=== PATIENT | female | born 1995 | race Caucasian/White ===

== ENCOUNTER 2018-06-01 16:31 | Outpatient (CLI) | payer SELFPAY | END 2018-06-01 16:51 | PROVIDERS: PCP Pediatrics; Visit Provider Registered Nurse | DX: R00.2 Palpitations (principal) | CPT/HCPCS: 93005; 93010 ==

== ENCOUNTER 2019-04-23 14:01 | Outpatient (REF) | payer MEDICAID, SELFPAY ==
--- NOTE | 2019-04-23 13:40 | PAPFT_PTH ---
PATIENT: Aristeo Perla LOC: [facility] U#:[id number] AGE/SX: 23/F ROOM: RE04/23/[address]: HERLINDA Lebron : 1995 BED: DIS: 04/23/2019 SPEC #: [id number] RECD: 04/23/19 18:28 STATUS: LETICIA REQ #: [id number] TAZ: 04/23/19 13:[address]: Constanza Saldivar DEPT: [facility] Cytology RECD BY: Nimco Toney ENTERED: 04/23/19 18:28 SP TYPE: PAPFT JASPREET DR: Omaira Menjivar, PhD [employer] OPERATOR Tissues: 1 - CX/ENDOCX FOR PAP SMEARS Procedures: PAP THIN PREP/[facility] Screening Comments: [id number]
[2019-04-26 15:23] LABS: Chlamydia Result Negative (Negative); GC Result Negative (Negative)
== END 2019-04-23 14:21 ==
LOC: LBN 14:01
PROVIDERS: PCP Nurse Practitioner; Visit Provider Nurse Practitioner Family
DX: Z11.3 Encounter for screening for infections with a predominantly sexual mode of transmission (principal); Z12.4 Encounter for screening for malignant neoplasm of cervix
CPT/HCPCS: 87491; 87591; 88142

== ENCOUNTER 2020-05-19 03:27 | Outpatient (CLI) | payer MEDICAID, SELFPAY ==
[2020-05-19 20:48] LABS: COVID-19 RT-PCR UVMMC Result Negative (Negative)
== END 2020-05-19 03:47 ==
PROVIDERS: PCP Nurse Practitioner; Visit Provider Nurse Practitioner
DX: Z20.822 Contact with and (suspected) exposure to COVID-19 (principal)
CPT/HCPCS: U0003

== ENCOUNTER 2020-07-05 04:06 | Outpatient (CLI) | payer MEDICAID, SELFPAY ==
[2020-07-05 08:44] LABS: Hemoglobin A1C 5.2 % (<5.7)
[2020-07-05 09:28] LABS: Calculated LDL 98 mg/dL (<100); Cholesterol 178 mg/dL (<200); HDL Cholesterol 70 mg/dL (40-60); Triglyceride 52 mg/dL (<150)
== END 2020-07-05 04:07 | disposition home or self-care (01) ==
LOC: LBO 04:06
PROVIDERS: PCP Nurse Practitioner; Visit Provider Nurse Practitioner
DX: Z13.1 Encounter for screening for diabetes mellitus (principal); Z13.6 Encounter for screening for cardiovascular disorders
CPT/HCPCS: 36415; 80061; 83036

== ENCOUNTER 2020-10-17 18:54 | Outpatient (REF) | payer MEDICAID, SELFPAY ==
[2020-10-18 14:11] LABS: Chlamydia Result Negative (Negative); GC Result Negative (Negative)
== END 2020-10-17 18:55 | disposition home or self-care (01) ==
LOC: LBN 18:54
PROVIDERS: PCP Nurse Practitioner; Visit Provider Nurse Practitioner Women's Health
DX: Z11.3 Encounter for screening for infections with a predominantly sexual mode of transmission (principal)
CPT/HCPCS: 87491; 87591

== ENCOUNTER 2020-11-30 16:15 | Outpatient (REF) | payer MEDICAID, SELFPAY ==
[2020-12-04 15:23] LABS: Chlamydia Result Negative (Negative); GC Result Negative (Negative)
== END 2020-11-30 16:16 | disposition home or self-care (01) ==
LOC: LBN 16:15
PROVIDERS: PCP Nurse Practitioner; Visit Provider Obstetrics & Gynecology
DX: Z20.2 Contact with and (suspected) exposure to infections with a predominantly sexual mode of transmission (principal); Z11.3 Encounter for screening for infections with a predominantly sexual mode of transmission
CPT/HCPCS: 87491; 87591; 87480; 87510; 87660

== ENCOUNTER 2021-02-01 10:29 | Outpatient (REF) | payer MEDICAID, SELFPAY ==
[2021-02-02 12:06] LABS: COVID-19 RT-PCR UVMMC Result Negative (Negative)
== END 2021-02-01 10:30 | disposition home or self-care (01) ==
LOC: LBN 10:29
PROVIDERS: PCP Nurse Practitioner; Visit Provider Nurse Practitioner Family
DX: Z20.822 Contact with and (suspected) exposure to COVID-19; J02.9 Acute pharyngitis, unspecified
CPT/HCPCS: U0003; 87070

== ENCOUNTER 2021-02-07 15:40 | Outpatient (REF) | payer MEDICAID, SELFPAY | END 2021-02-07 15:41 | disposition home or self-care (01) | LOC: LBN 15:40 | PROVIDERS: PCP Nurse Practitioner; Visit Provider Obstetrics & Gynecology Gynecology | DX: N89.8 Other specified noninflammatory disorders of vagina (principal) | CPT/HCPCS: 87480; 87510; 87660 ==

== ENCOUNTER 2021-04-09 13:57 | Outpatient (REF) | payer MEDICAID, SELFPAY ==
[2021-04-11 13:44] LABS: Chlamydia Result Negative (Negative); GC Result Negative (Negative)
== END 2021-04-09 13:58 | disposition home or self-care (01) ==
LOC: LBN 13:57
PROVIDERS: PCP Nurse Practitioner; Visit Provider Nurse Practitioner Women's Health
DX: N89.8 Other specified noninflammatory disorders of vagina (principal); Z11.3 Encounter for screening for infections with a predominantly sexual mode of transmission
CPT/HCPCS: 87491; 87591; 87480; 87510; 87660

== ENCOUNTER 2021-07-16 01:54 | Outpatient (CLI) | payer MEDICAID, SELFPAY ==
[2021-07-16 15:12] LABS: TSH (W/Ref FT4) 0.65 uIU/mL (0.36-3.74)
== END 2021-07-16 01:55 | disposition home or self-care (01) ==
LOC: LBO 01:55
PROVIDERS: PCP Nurse Practitioner; Visit Provider Nurse Practitioner
DX: R53.83 Other fatigue (principal)
CPT/HCPCS: 36415; 84443

== ENCOUNTER 2021-11-16 16:48 | Outpatient (REF) | payer MEDICAID, SELFPAY ==
[2021-11-19 10:47] LABS: HBs Antibody, Quant <3.1 mIU/mL (See Note); Hepatitis B Surface Ab Negative (See Note)
[2021-11-19 18:08] LABS: Measles IgG Antibody Negative (See Note); Mumps Antibody IgG Negative (See Note); Rubella IgG Ab (UVM) Positive (See Note); Varicella IgG Antibody Positive (See Note)
== END 2021-11-16 16:49 | disposition home or self-care (01) ==
LOC: LBN 16:48
PROVIDERS: PCP Nurse Practitioner; Visit Provider Physician Assistant Medical
DX: Z11.59 Encounter for screening for other viral diseases (principal); Z01.84 Encounter for antibody response examination
CPT/HCPCS: 86706; 86787; 86735; 86762; 86765

== ENCOUNTER 2022-05-31 12:09 | Outpatient (REF) | payer MEDICAID, SELFPAY ==
--- NOTE | 2022-05-31 08:45 | PAPFT_PTH ---
PATIENT: Aristeo Perla LOC: [facility] U#:[id number] AGE/SX: 27/F ROOM: RE05/31/[address]: Aimee Siegel MD : 1995 BED: DIS: 05/31/2022 SPEC #: [id number] RECD: 05/31/22 12:44 STATUS: LETICIA REJoss #: [id number] TAZ: 05/31/22 08:[address]: Aimee Siegel DEPT: [facility] Cytology RECD BY: Nimco Toney ENTERED: 05/31/22 12:45 SP TYPE: PAPFT OTHR DR: Mary Levin, TATIANNA Tissues: 1 - CX/ENDOCX FOR PAP SMEARS Procedures: PAP THIN PREP/[facility] Screening HPV DNA PROBE Comments: [id number] (CHLAMYDIA/GC)
[2022-06-03 14:15] LABS: Chlamydia Result Negative (Negative); GC Result Negative (Negative)
== END 2022-05-31 12:10 | disposition home or self-care (01) ==
LOC: LBN 12:09
PROVIDERS: PCP Nurse Practitioner Family; Visit Provider Obstetrics & Gynecology
DX: Z12.4 Encounter for screening for malignant neoplasm of cervix (principal); Z11.3 Encounter for screening for infections with a predominantly sexual mode of transmission; N89.8 Other specified noninflammatory disorders of vagina; R87.610 Atypical squamous cells of undetermined significance on cytologic smear of cervix (ASC-US); Z11.51 Encounter for screening for human papillomavirus (HPV)
CPT/HCPCS: 87491; 87591; 88142; 87480; 87510; 87624; 87660

== ENCOUNTER 2022-07-17 02:59 | Outpatient (CLI) | payer MEDICAID, SELFPAY ==
[2022-07-17 08:59] LABS: Abs Immature Grans 0.03 10^3/uL (0.0-0.06); Absolute Basophil Count 0.02 10^3/uL (0.0-0.2); Absolute Eosinophil Count 0.09 10^3/uL (0.0-0.7); Absolute Lymphocyte Count 2.92 10^3/uL (1.2-3.4); Absolute Monocyte Count 0.73 10^3/uL (0.1-0.8); Absolute Neutrophil Count 3.87 10^3/uL (1.2-6.7); Basophils % 0.3; Eosinophils % 1.2; HCT 41.5 % (36.0-46.0); Immature Grans % 0.4; Lymphocytes % 38.1; MCHC 33.7 % (32.0-36.0); MCV 95 fL (80-95); MPV 9.2 fL (8.0-11.0); Monocytes % 9.5; Neutrophils % 50.5; Platelet Count 239 10^3/uL (130-400); RBC 4.38 10^6/uL (3.93-5.22); RDW 12.1 % (11.7-14.6); RDW-SD 42.2 fL; WBC 7.66 10^3/uL (4.4-10.8)
[2022-07-17 09:16] LABS: ALT 27 U/L (14-59); AST 14 U/L (15-37); Albumin 4.1 g/dL (3.4-5.0); Alkaline Phosphatase 55 U/L (46-116); Anion Gap 9.7 mmol/L (3-11); BUN 9 mg/dL (7-18); Bilirubin, Total 1.4 mg/dL (0.2-1.0); CO2 26.3 mmol/L (21.0-32.0); CREATININE 0.8 mg/dL (0.55-1.02); Calcium 9.1 mg/dL (8.5-10.1); Chloride 102 mmol/L (98-107); Glucose 111 mg/dL (74-106); Potassium 3.3 mmol/L (3.5-5.1); Sodium 138 mmol/L (136-145); TSH (W/Ref FT4) 1.21 uIU/mL (0.36-3.74); Total Protein 7.7 g/dL (6.4-8.2)
[2022-07-18 09:25] LABS: HBs Antibody, Quant >1000.0 mIU/mL (See Note); Hepatitis B Surface Ab Positive (See Note)
== END 2022-07-17 03:00 | disposition home or self-care (01) ==
LOC: LBO 02:59
PROVIDERS: PCP Nurse Practitioner Family; Visit Provider Nurse Practitioner Family
DX: F41.8 Other specified anxiety disorders (principal); R53.83 Other fatigue; Z11.59 Encounter for screening for other viral diseases
CPT/HCPCS: 36415; 80053; 86706; 84443; 85025

== ENCOUNTER 2023-06-30 15:38 | Outpatient (REF) | payer MEDICAID, SELFPAY ==
--- NOTE | 2023-06-30 15:00 | PAPFT_PTH ---
PATIENT: Aristeo Perla LOC: [facility] U#:[id number] AGE/SX: 28/F ROOM: RE06/30/[address]: Supriya Lyons : 1995 BED: DIS: 06/30/2023 SPEC #: [id number] RECD: 06/30/23 17:30 STATUS: LETICIA REJoss #: [id number] TAZ: 06/30/23 15:[address]: Supriya Lyons DEPT: [facility] Cytology RECD BY: Nimco Toney ENTERED: 06/30/23 17:31 SP TYPE: PAPFT OTHR DR: Mary Levin, TATIANNA Tissues: 1 - CX/ENDOCX FOR PAP SMEARS Procedures: PAP THIN PREP/[facility] Screening Comments: [id number] (CHLAMYDIA/GC)
[2023-07-01 13:08] LABS: Chlamydia Result Negative (Negative); GC Result Negative (Negative)
== END 2023-06-30 15:39 | disposition home or self-care (01) ==
LOC: LBN 15:38
PROVIDERS: PCP Nurse Practitioner Family; Visit Provider Advanced Practice Midwife
DX: N89.8 Other specified noninflammatory disorders of vagina (principal); Z12.4 Encounter for screening for malignant neoplasm of cervix; Z11.3 Encounter for screening for infections with a predominantly sexual mode of transmission
CPT/HCPCS: 87491; 87591; 88142; 87480; 87510; 87660

== ENCOUNTER 2023-09-19 15:47 | Outpatient (REF) | payer MEDICAID, SELFPAY ==
[2023-09-22 10:48] LABS: HBs Antibody, Quant 184.4 mIU/mL (See Note); Hepatitis B Surface Ab Positive (See Note)
== END 2023-09-19 15:48 | disposition home or self-care (01) ==
LOC: LBN 15:47
PROVIDERS: PCP Nurse Practitioner Family; Visit Provider Nurse Practitioner Family
DX: Z11.59 Encounter for screening for other viral diseases (principal)
CPT/HCPCS: 86706

== ENCOUNTER 2023-11-07 14:49 | Outpatient (REF) | payer MEDICAID, SELFPAY ==
[2023-11-10 12:52] LABS: Chlamydia Result Negative (Negative); GC Result Negative (Negative)
== END 2023-11-07 14:50 | disposition home or self-care (01) ==
LOC: LBN 14:49
PROVIDERS: PCP Nurse Practitioner Family; Visit Provider Obstetrics & Gynecology
DX: Z11.3 Encounter for screening for infections with a predominantly sexual mode of transmission (principal)
CPT/HCPCS: 87491; 87591

== ENCOUNTER 2023-11-24 15:57 | Outpatient (REF) | payer MEDICAID, SELFPAY | END 2023-11-24 15:58 | disposition home or self-care (01) | LOC: LBN 15:57 | PROVIDERS: PCP Nurse Practitioner Family; Visit Provider Nurse Practitioner Women's Health | DX: N76.0 Acute vaginitis (principal) | CPT/HCPCS: 87480; 87510; 87660 ==

== ENCOUNTER 2024-05-14 16:04 | Outpatient (REF) | payer MEDICAID, SELFPAY ==
[2024-05-17 12:32] LABS: Chlamydia Result Negative (Negative); GC Result Negative (Negative)
== END 2024-05-14 16:05 | disposition home or self-care (01) ==
LOC: LBN 16:04
PROVIDERS: PCP Nurse Practitioner Family; Visit Provider Advanced Practice Midwife
DX: N89.8 Other specified noninflammatory disorders of vagina (principal); R87.620 Atypical squamous cells of undetermined significance on cytologic smear of vagina (ASC-US); Z11.3 Encounter for screening for infections with a predominantly sexual mode of transmission
CPT/HCPCS: 87491; 87591; 87480; 87510; 87660

== ENCOUNTER 2024-06-18 00:26 | Outpatient (CLI) | payer MEDICAID, SELFPAY ==
--- NOTE | 2024-06-18 06:30 | DI.MRI_ITS ---
Exam(s) MR UPPER EXTREMITY RT WO EXAM: MR UPPER EXTREMITY RT WO CLINICAL HISTORY: right middle finger injury,[id number] TECHNIQUE: Multiplanar multisequence MRI the hand was performed. COMPARISON: There are no plain films available time this MRI interpretation. FINDINGS: MARROW/ARTICULATION:There is no evidence of fracture nor bone contusion. There are no significant os seous lesions. No joint effusions. SOFT TISSUES: There is subcutaneous edema over the dorsal aspect of the 3rd finger in the region of t he proximal interphalangeal joint. MUSCLES/ TENDONS: Flexor tendons are unremarkable.There is focal tearing of the medial aspect of the extensor tendon of the 3rd finger at the level the PIP joint There is no evidence of retraction of the tendon. COLLATERAL LIGAMENTS: There is no evidence of tear of the collateral ligaments of the PIP joint of th e affected 3rd finger OTHER: None. IMPRESSION: There is a focal tear on the ulnar/medial aspect of the extensor tendon of the 3rd-middle finger at t he level the PIP joint. There is no retraction of the tendon. There is overlying edema in the subcuta neous soft tissues. There is no evidence of significant joint effusion in the subjacent PIP joint. No fracture or bone contusion. DATA REPOSITORY:
--- NOTE | 2024-06-18 15:38 | DI.VRAD_ITS ---
PROCEDURE INFORMATION: Exam: MR Right Upper Extremity Other Than Joint Without Contrast; Fingers Exam date and time: 06/18/2024 8:39 AM Age: 29 years old Clinical indication: Pain and injury or trauma; Other: Cut 3rd finger near pip TECHNIQUE: Imaging protocol: Magnetic resonance imaging of the right upper extremity without contrast. Exam focused on the fingers. COMPARISON: No relevant prior studies available. FINDINGS: Bones/joints: Unremarkable Collateral ligaments of digits: Unremarkable. No evidence of tear. Flexor compartment tendons: Unremarkable. No evidence of tear. Extensor compartment tendons: Focal fenestration in the ulnar aspect of the extensor tendon the PIP joint. See the axial series 401 and 501, image 2930. This suggests focal tearing of the extensor tendon. No evidence of tendon retraction. Soft tissues: Subcutaneous edema in the dorsum of the 3rd finger centered about the PIP joint. No fluid collection identified. IMPRESSION: 1. Focal tear of the ulnar aspect of the extensor tendon the level the PIP joint, right 3rd finger 2. Subcutaneous edema over the dorsum of 3rd PIP joint without fluid collection Dictated and Authenticated by: Yoli Colbert MD. Orderin Poonam Mary SANCHEZ
== END 2024-06-18 00:46 ==
LOC: DI 00:26
PROVIDERS: PCP Nurse Practitioner Family; Visit Provider Nurse Practitioner Family
DX: S66.323A Laceration of extensor muscle, fascia and tendon of left middle finger at wrist and hand level, initial encounter (principal); X58.XXXA Exposure to other specified factors, initial encounter
CPT/HCPCS: 73218

== ENCOUNTER 2024-10-04 04:25 | Outpatient (CLI) | payer MEDICAID, SELFPAY ==
[2024-10-06 14:38] LABS: TB Interpretation Negative (Negative)
== END 2024-10-04 04:26 | disposition home or self-care (01) ==
PROVIDERS: PCP Nurse Practitioner Family; Visit Provider Nurse Practitioner Family
DX: Z11.1 Encounter for screening for respiratory tuberculosis (principal)
CPT/HCPCS: 36415; 86480